=== PATIENT | male | born 1995 | race Hispanic/Latino ===

== ENCOUNTER 2017-06-10 19:57 | Emergency (ER) | payer OTHER ==
[2017-06-10 20:11] VITALS: BP 151/96; PULSE 95; RESP 18; TEMP 98.8; O2SAT 99
--- NOTE | 2017-06-10 20:46 | ED PDOC ---
Upper Extremity Pain/Injury Time Seen by Provider: 06/10/17 20:24 Chief Complaint (Nursing): Upper Extremity Problem/Injury Chief Complaint (Provider): Hand laceration History Per: Patient History/Exam Limitations: no limitations Onset/Duration Of Symptoms: Days (x 1) Current Symptoms Are (Timing): Still Present Additional Complaint(s): Marin is a 22 y/o right hand dominant male who presents to the ED for evaluation of a laceration to the left hand, sustained earlier today. Patient reports that he sliced his hand while cutting an avocado. Patient is able to move all fingers. His last tetanus was 1-2 years ago. PMD: None Past Medical History Reviewed: Historical Data, Nursing Documentation, Vital Signs Vital Signs: Last Vital Signs Temp 98.8 F 06/10/17 20:06 Pulse 95 H 06/10/17 20:06 Resp 18 06/10/17 20:06 BP 151/96 H 06/10/17 20:06 Pulse Ox 99 06/10/17 20:06 - Medical History PMH: No Chronic Diseases - Surgical History Surgical History: No Surg Hx - Family History Family History: States: No Known Family Hx - Living Arrangements Living Arrangements: With Friends/Others - Social History Current smoker - smoking cessation education provided: No Alcohol: None Drugs: Denies - Immunization History Hx Tetanus Toxoid Vaccination: Yes - Allergies Allergies/Adverse Reactions: Allergies Allergy/AdvReac Type Severity Reaction Status Date / Time Penicillins Allergy RASH Verified 06/10/17 20:06 Review of Systems ROS Statement: Except As Marked, All Systems Reviewed And Found Negative Skin: Positive for: Other (left hand laceration) Physical Exam - Reviewed Nursing Documentation Reviewed: Yes Vital Signs Reviewed: Yes - Physical Exam Appears: Positive for: Well, Non-toxic, No Acute Distress Head Exam: Positive for: ATRAUMATIC, NORMAL INSPECTION, NORMOCEPHALIC Skin: Positive for: Normal Color. Negative for: Rash Eye Exam: Positive for: Normal appearance Extremity: Positive for: Other (2 cm laceration to the palmar aspect of left hand with exposure of subcutaneous tissues, no active bleeding, full range of motion of all digits, normal distal sensation, normal sensation surrounding wound) Neurologic/Psych: Positive for: Alert, Oriented - ECG O2 Sat by Pulse Oximetry: 99 (RA) Pulse Ox Interpretation: Normal Medical Decision Making Medical Decision Makin22 year old male with laceration to left hand Time: 20:40 Plan: --Lidocaine ordered --Laceration will be repaired Procedure note: Under sterile conditions laceration to left hand was anesthetized with 6 mL of lidocaine, good anesthesia was achieved. Wound was irrigated copiously with normal saline and Betadine, no foreign bodies noted. 5 simple interrupted 5-0 nylon sutures were used to approximate wound edges, good wound approximation was achieved, good bleeding control was achieved. Procedure tolerated well by patient with no acute complications. Patient was instructed to take NSAIDs for pain as needed. Advised suture removal in 10-14 days, wound care instructions provided. Scribe Attestation: Documented by Rebecca Arreola, acting as a scribe for Jenni Curry PA-C Provider Scribe Attestation: All medical record entries made by the Scribe were at my direction and personally dictated by me. I have reviewed the chart and agree that the record accurately reflects my personal performance of the history, physical exam, medical decision making, and the department course for this patient. I have also personally directed, reviewed, and agree with the discharge instructions and disposition. Disposition - Clinical Impression Clinical Impression: Hand laceration - Patient ED Disposition Is Patient to be Admitted: No Counseled Patient/Family Regarding: Diagnosis, Need For Followup - Disposition Referrals: [facility] [Outside] Disposition: Routine/Home Disposition Time: 21:54 Condition: STABLE Additional Instructions: Keep wound clean and dry. Advil for pain as needed. Suture removal 10-14 days. Return to emergency department any time for any concerns or worsening symptoms. Instructions: Care For Your Stitches (ED), Laceration (ED) Forms: [employer] (Turkmen), [facility] ED School/Work Excuse
== END 2017-06-10 22:51 | disposition home or self-care (01) ==
LOC: H.ER 19:57
DX: S61.412A Laceration without foreign body of left hand, initial encounter (principal); W45.8XXA Other foreign body or object entering through skin, initial encounter; Y93.G1 Activity, food preparation and clean up; Y92.9 Unspecified place or not applicable